=== PATIENT | female | born 1995 | race Caucasian/White ===

== ENCOUNTER 2017-09-23 01:29 | Emergency (ER) | payer BC ==
[2017-09-23] MEDS ORDERED: NS 0.9% 1000 ML* 1,000 ML IV ONE (01:59)
[2017-09-23] MEDS ORDERED: Ketorolac INJ* 30 MG/ML 1 ML VIAL IV PUSH ONE (02:00)
[2017-09-23] MEDS ORDERED: Metoclopramide IV* 5 MG/ML 2 ML VIAL IV SLOW PU ONE (02:01)
[2017-09-23 02:43] LABS: ABS Basophils 0.1 10^3/ul (0-0.2); ABS Eosinophils 0.1 10^3/ul (0-0.6); ABS Lymphocytes 3.2 10^3/ul (1.0-4.8); ABS Monocytes 0.6 10^3/ul (0-0.8); ABS Neutrophils 7.9 10^3/ul (1.5-7.7); ABS Nucleated RBC 0 10^3/ul; Eosinophil % 1.2 % (0-6); Hematocrit 38 % (35-47); Lymphocyte % 27.2 % (25-47); Mean Corpuscular HGB Conc 34 g/dl (31-36); Mean Corpuscular Hemoglobin 27 pg (27-31); Mean Corpuscular Volume 80 fL (80-97); Mean Platelet Volume 8 um3 (7.4-10.4); Nucleated Red Blood Cells % 0.1; Platelet Count 317 10^3/ul (150-450); Red Blood Count 4.77 10^6/ul (4.0-5.4); Red Cell Distribution Width 13 % (10.5-15); White Blood Count 11.9 10^3/ul (3.5-10.8)
[2017-09-23 03:05] LABS: Urine Appearance Clear; Urine Blood Negative (Negative); Urine Color Straw; Urine Ketones Negative (Negative); Urine Protein Negative (Negative); Urine Specific Gravity 1.004 (1.010-1.030); Urine Urobilinogen Negative (Negative)
--- NOTE | 2017-09-23 04:28 | ED ---
Connie Joya Edward, scribed for Dipesh Kathleen MD on 09/23/17 at 0145 . Syncope/Near Syncope - HPI Summary HPI Summary: 21 y/o female presents to the ED c/o intermittent syncopal episodes tonight. Pt had her first episode going to the bathroom. The episodes last from 5 and 33 seconds. Pt also c/o headache at the L side of her head. Associated sx: shakiness, back pain. Pt states she started having syncopal episodes on . PMHx depression and anxiety. Pt states every time she is about to pass out she feels like she need to urinate, but has never urinated. Pt was seen at [address] for these sx s/p 09/19/17. - History Of Current Complaint Hx Obtained From: Patient Timing: Intermittent Episode Lasting Context: Loss Of Consciousness Activity At Onset: Other - going to the bathroom Aggravating Factor(s): Nothing Alleviating Factor(s): Nothing Associated Signs And Symptoms: Headache, Other - back pain, shakiness - Allergies/Home Medications Allergies/Adverse Reactions: Allergies Allergy/AdvReac Type Severity Reaction Status Date / Time bupropion [From Wellbutrin] Allergy Hives Verified 09/23/17 01:39 duloxetine [From Cymbalta] Allergy Hives Verified 09/23/17 01:39 PMH/Surg Hx/FS Hx/Imm Hx Previously Healthy: No Cardiovascular History: Denies: Hx Congestive Heart Failure Opthamlomology History: Denies: Hx Legally Blind Psychiatric History: Reports: Hx Anxiety, Hx Depression - Family History Known Family History: Positive: Unknown - Social History Lives: With Family Smoking Status (MU): Unknown if Ever Smoked Review of Systems Constitutional: Negative Eyes: Negative ENT: Negative Cardiovascular: Negative Respiratory: Negative Gastrointestinal: Negative Genitourinary: Negative Positive: Myalgia - back pain Skin: Negative Neurological: Other - shakiness Positive: Headache, Syncope Psychological: Normal All Other Systems Reviewed And Are Negative: Yes Physical Exam - Summary Physical Exam Summary: VITAL SIGNS: Reviewed. GENERAL: Patient is a well-developed and nourished female who is lying comfortable in the stretcher. Patient is not in any acute respiratory distress. HEAD AND FACE: No signs of trauma. No ecchymosis, hematomas or skull depressions. No sinus tenderness. EYES: PERRLA, EOMI x 2, No injected conjunctiva, no nystagmus. EARS: Hearing grossly intact. Ear canals and tympanic membranes are within normal limits. MOUTH: Oropharynx within normal limits. NECK: Supple, trachea is midline, no adenopathy, no JVD, no carotid bruit, no c- spine tenderness, neck with full ROM. CHEST: Symmetric, no tenderness at palpation LUNGS: Clear to auscultation bilaterally. No wheezing or crackles. CVS: Regular rate and rhythm, S1 and S2 present, no murmurs or gallops appreciated. ABDOMEN: Soft, non-tender. No signs of distention. No rebound no guarding, and no masses palpated. Bowel sounds are normal. EXTREMITIES: FROM in all major joints, no edema, no cyanosis or clubbing. NEURO: Alert and oriented x 3. No acute neurological deficits. Speech is normal and follows commands. SKIN: Dry and warm Triage Information Reviewed: Yes Vital Signs Reviewed: Yes Diagnostics - Laboratory Result Diagrams: 09/23/17 02:25 09/23/17 02:25 Lab Statement: Any lab studies that have been ordered have been reviewed, and results considered in the medical decision making process. - EKG 1 EKG Interpretation: 01:35 - SR @ 88 BPM. Normal axis, normal interval, no ischemic changes. Course/Dx Assessment/Plan: EKG normal. Pt ambulated in the ED without dizziness. CT scan done at [place] was normal. Pt will be d/c home with f/u with PCP. - Diagnoses Provider Diagnoses: Dizziness, Syncope Discharge - Discharge Plan Condition: Stable Disposition: HOME Patient Education Materials: Syncope (ED), Dizziness (ED) Referrals: Non Staff,Doctor [Primary Care Provider] - 4 Days (PLEASE F/U IN 3-5 DAYS) Additional Instructions: RETURN TO THE ED FOR THE RETURN OR WORSENING OF SYMPTOMS The documentation as recorded by the Connie riley Edward accurately reflects the service I personally performed and the decisions made by , Dipesh Kathleen MD.
[2017-09-23 04:31] VITALS: BP 114/63
== END 2017-09-23 04:30 | disposition home or self-care (01) ==
LOC: ED 01:29
DX: R51 Headache (principal); M54.9 Dorsalgia, unspecified; R42 Dizziness and giddiness; R55 Syncope and collapse
CPT/HCPCS: 36415; 80053; 81003; 82550; 83605; 83735; 84443; 84702; 85025; 93005; 96374; 96375; 99283; J1885; J2765

== ENCOUNTER 2018-06-14 18:05 | Emergency (ER) | payer BC ==
[2018-06-14 18:36] VITALS: BP 118/73
--- NOTE | 2018-06-14 18:43 | UC ---
General HPI - HPI Summary HPI Summary: pt. states she went into [facility] on 06/10/18 and fainted when she went to pay. they wanted to call EMS but pt refused. she presents today for ongoing pain to R side of head and neck pain. she thinks she hit that side of her head when she fell. pt. states that she faints often and has been to a few different ER's but "nobody tells me any thing". she admits to feeling hot, dizzy and has a sense of needing to urinate before the fainting occurs. her LOC is brief, about 15 - 30 seconds. she does feel a little confused after each episode but that is brief. she has never lost control of her bowel/bladder. pt does not have a PCP. no numb/weak extremities, visual change, change in speech. no abrupt or worst headache. - History of Current Complaint Chief Complaint: UCHeadanatacha Stated Complaint: S/P FALL (3 DAYS AGO) HEADACHE Time Seen by Provider: 06/14/18 18:36 Hx Last Menstrual Period: 05/29/18 Pain Intensity: 9 Associated Signs & Symptoms: Positive: Headache, Syncope, Weakness. Negative: Chest Pain, SOB - Allergy/Home Medications Allergies/Adverse Reactions: Allergies Allergy/AdvReac Type Severity Reaction Status Date / Time bupropion [From Wellbutrin] Allergy Hives Verified 06/14/18 18:36 duloxetine [From Cymbalta] Allergy Hives Verified 06/14/18 18:36 Home Medications: Home Medications Ibuprofen 600 mg PO TID 06/14/18 [History Confirmed 06/14/18] PMH/Surg Hx/FS Hx/Imm Hx - Additional Past Medical History Additional PMH: fainting spells Psychological History: Anxiety, Depression, Post Traumatic Stress Disorder, Other - ADHD - Surgical History Surgical History: Yes Surgery Procedure, Year, and Place: appy, gallbladder removed - Family History Known Family History: Positive: Seizure Disorder - sister - Social History Occupation: Employed Full-time Alcohol Use: Occasionally Substance Use Type: None Smoking Status (MU): Never Smoked Tobacco Review of Systems All Other Systems Reviewed And Are Negative: Yes Constitutional: Positive: Negative Skin: Positive: Negative Eyes: Positive: Negative ENT: Positive: Negative Respiratory: Positive: Negative Cardiovascular: Negative: Palpitations, Chest Pain Gastrointestinal: Positive: Negative Genitourinary: Positive: Negative Motor: Positive: Negative Neurovascular: Positive: Negative Musculoskeletal: Positive: Other: - neck pain Neurological: Positive: Headache Psychological: Positive: Negative Is Patient Immunocompromised?: No Physical Exam Triage Information Reviewed: Yes Appearance: Well-Appearing Vital Signs: Initial Vital Signs Temp 99 F 06/14/18 18:31 Pulse 112 06/14/18 18:31 Resp 16 06/14/18 18:31 BP 118/73 06/14/18 18:31 Pulse Ox 100 06/14/18 18:31 Vital Signs Reviewed: Yes Eyes: Positive: Conjunctiva Clear, Other: - PERRL, EOMI. ENT: Positive: Pharynx normal, TMs normal. Negative: Nasal congestion, Nasal drainage Neck: Positive: Supple, No Lymphadenopathy, Other: - Diffuse posterior neck pain but no step off or instability. Respiratory: Positive: Lungs clear, Normal breath sounds Cardiovascular: Positive: RRR, No Murmur Abdomen Description: Positive: Nontender, No Organomegaly, Soft Bowel Sounds: Positive: Present Musculoskeletal: Positive: Other: - Head is normocephalic and tender on R side but no step off or instability. Thoracic and lumbar spine are non tender. extremities are atraumatic. Neurological: Positive: Alert, Other: - A&O x3. CN 2-12 grossly intact. 5/5 strength, 2+ reflexes and sensation intact x4. steady gait. Psychological: Positive: Age Appropriate Behavior Skin Exam: Normal Diagnostics - Radiology No standard instances Radiology Interpretation Completed By: Radiologist - CT BRAIN=IMPRESSION: No acute intracranial abnormality. CT CSPINE=IMPRESSION: 1. No acute cervical spine fracture. 2. Approximately 3 cm heterogeneous nodule in the left lobe of the thyroid gland. Recommend further evaluation with thyroid ultrasound. Recommend further evaluation with thyroid ultrasound. - EKG Cardiac Rate: NL Cardiac Rhythm: Sinus: Normal Ectopy: None ST Segment: Normal Re-Evaluation - Re-Evaluation First Eval Re-Evaluation Time: 19:50 Change: Unchanged - Thyroid exam=fullness L inferior lobe Course/Dx - Course Course Of Treatment: no lethal arrythmia on ekg. no concern for PE. vasal vagal syncope and orthostatic hypotension are possible. doubt seizure disoder but is in the differential. CT BRAIN=NAD AND C SPINE=NO FX, INCIDENTAL 3CM L THYROID NODULE. pt advised that she must f/u with a pcp for ongoing evaluation and tx of her fainting and throid nodule. she agrees. - Differential Dx - Multi-Symptom Provider Diagnoses: Contusion head, Neck strain, syncope, 3cm L thyroid nodule. Discharge - Sign-Out/Discharge Documenting (check all that apply): Patient Departure All imaging exams completed and their final reports reviewed: Yes - Discharge Plan Condition: Stable Disposition: HOME Patient Education Materials: Head Injury (ED), Cervical Strain (DC), Syncope ( DC), Thyroid Nodules (ED) Forms: *Work Release Referrals: GUI Ibarra [Medical Doctor] - [facility] [Outside] - As Soon As Possible Additional Instructions: SATURDAY AM(2 DAYS) CALL THE [facility]. THEY CAN ASSIST YOU WITH THE FOLLOW UP APPOINTMENT WITH [facility]. GO TO THE ER FOR ANY TYPE OF WORSENING OR RECURRENT FAINTING. - Billing Disposition and Condition Condition: STABLE Disposition: Home
[2018-06-14] MEDS ORDERED: Ibuprofen ADULT LIQ* 600 MG/30 ML UDC PO ONE (19:50)
== END 2018-06-14 19:58 | disposition home or self-care (01) ==
LOC: UCCORT 18:05
DX: Z88.8 Allergy status to other drugs, medicaments and biological substances (principal); S00.93XA Contusion of unspecified part of head, initial encounter; W19.XXXA Unspecified fall, initial encounter; Y92.511 Restaurant or cafe as the place of occurrence of the external cause; S16.1XXA Strain of muscle, fascia and tendon at neck level, initial encounter; R55 Syncope and collapse; E04.1 Nontoxic single thyroid nodule
CPT/HCPCS: 70450; 72125; 93005; 99212; A9270-GY; G0463

== ENCOUNTER 2019-05-30 10:52 | Emergency (ER) | payer BC, OTHER ==
[2019-05-30] MEDS ORDERED: HYDROcodone/ACETAMIN 5-325 MG* 1 TAB PO ONE (11:13)
[2019-05-30] MEDS ORDERED: Naproxen TAB* 250 MG PO ONE (11:13)
[2019-05-30] MEDS ORDERED: Lidocaine 1% MPF ** 5 ML VIAL INJ ONE (12:26)
--- NOTE | 2019-05-30 13:16 | UC ---
Bite Injury/Animal HPI - HPI Summary HPI Summary: 23 year old female presents to [facility] care [place] dog bite to both hands. She states that just prior to arrival she attempted to separate 2 of her own dogs who were fighting with one another and one of the dogs turned and bit her multiple times on her hands. Bleeding was controlled prior to arrival with direct pressure. States she has full movement to her fingers however very painful. Last tetanus 2018. - History of Current Complaint Chief Complaint: UCBiteInjury Stated Complaint: LEFT HAND DOG BITES Time Seen by Provider: 05/30/19 11:57 Hx Obtained From: Patient Hx Last Menstrual Period: 05/26/19 Pain Intensity: 9 - Allergies/Home Medications Allergies/Adverse Reactions: Allergies Allergy/AdvReac Type Severity Reaction Status Date / Time bupropion [From Wellbutrin] Allergy Hives Verified 05/30/19 11:13 duloxetine [From Cymbalta] Allergy Hives Verified 05/30/19 11:13 Home Medications: Home Medications Amphetamine MIXED SALT TAB* [Adderall TAB*] 10 mg PO DAILY PRN 05/30/19 [ History Confirmed 05/30/19] Depression Med, ? 1 tab PO BEDTIME 05/30/19 [History] Metoprolol Tartrate TAB* [Lopressor TAB*] 25 mg PO DAILY 05/30/19 [History Confirmed 05/30/19] PMH/Surg Hx/FS Hx/Imm Hx Cardiovascular History: Hypertension - Surgical History Surgical History: Yes Surgery Procedure, Year, and Place: appy, gallbladder removed - Family History Known Family History: Positive: Unknown, Seizure Disorder - sister - Social History Occupation: Employed Full-time Lives: With Family Alcohol Use: Rare Substance Use Type: None Smoking Status (MU): Never Smoked Tobacco - Immunization History Most Recent Tetanus Shot: 2018 Review of Systems All Other Systems Reviewed And Are Negative: Yes Constitutional: Positive: Negative Skin: Positive: Other - See HPI Respiratory: Positive: Negative Cardiovascular: Positive: Negative Gastrointestinal: Positive: Negative Genitourinary: Positive: Negative Motor: Negative: Weakness Neurovascular: Negative: Decreased Sensation Musculoskeletal: Negative: Decreased ROM Neurological: Positive: Negative Is Patient Immunocompromised?: No Physical Exam - Summary Physical Exam Summary: GENERAL APPEARANCE: Well developed, well nourished, alert and cooperative young adult female who appears to be in pain but no acute distress. CARDIAC: Normal S1 and S2. No S3, S4 or murmurs. Rhythm is regular. There is no peripheral edema, cyanosis or pallor. Extremities are warm and well perfused. Capillary refill is less than 2 seconds. Peripheral pulses intact. LUNGS: Clear to auscultation without rales, rhonchi, wheezing or diminished breath sounds. ABDOMEN: Positive bowel sounds. Soft, nondistended, nontender. No guarding or rebound. No masses or hepatosplenomegally. MUSKULOSKELETAL: ROM intact to all fingers. Normal muscular development. Normal gait. EXTREMITIES: Multiple superficial small lacerations and puncture wounds to bilateral hands and fingers (see diagram). There was a deep linear laceration to the dorsal, distal left middle finger (#7) with a corresponding deep laceration (#8) to the palmar aspect of the finger with adipose tissue protruding from the wound. Bleeding controlled. She has full ROM to all fingers. Circulation and sensation intact. SKIN: Skin normal color, texture and turgor with no lesions or eruptions. Triage Information Reviewed: Yes Vital Signs: Initial Vital Signs Temp 98.2 F 05/30/19 11:17 Pulse 81 05/30/19 11:17 Resp 18 05/30/19 11:17 BP 119/65 05/30/19 11:17 Pulse Ox 100 05/30/19 11:17 Vital Signs Reviewed: Yes Images Hands: 1 - Puncture wound 2 - Puncture wound 3 - Superficial linear laceration 4 - Superficial linear lacearation 5 - Superficial linear laceration 6 - Superficial puncture wound 7 - Deep linear laceration 8 - Deep linear laceration with protruding adipose tissue 9 - Superficial puncture wound 10 - Superficial linear laceration Procedures - Procedure Summary Procedure Summary: Procedure note: Laceration repair left middle finger Informed consent was obtained before procedure started and the appropriate timeout was taken. X-ray results were reviewed prior to the start of the procedure. The multiple superficial wounds to her bilateral hands and fingers were thoroughly cleansed using a sterile saline and chlorhexadine solution. After further examination it was determined that none of these required repair. A digital block of the left middle finger was performed using 4 ml of lidocaine 1% without epinephrine and good anesthesia was achieved. The area was prepped and draped in the usual sterile fashion. The wounds to the dorsal and palmar aspect of the distal left middle finger were copiously irrigated with a pressure device using 500 ml of sterile saline. I first turned my attention to the wound on the dorsal aspect of the finger. The wound margins were brought into good alignment and 6 interrupted sutures were placed using 5-0 Ethilon. I then turned my attention to the wound on the estrada aspect of the finger. I sharply excised some of the adipose tissue to allow for the wound margins to be brought into good alignment. The wound was then closed with a total of 3 interrupted sutures using 5-0 Ethilon. Total length of both wounds after repair was 2.5 cm. Estimated blood loss was minimal. A dressing was applied to the area. Anticipatory guidance, as well as standard post-procedure care was discussed with patient. Return precautions are given. The patient tolerated the procedure well without complications. Patient is to follow up with hand surgery in 2-3 days for revaluation of the laceration and likely scheduled for suture removal in 05-11 pending no complications. Diagnostics - Radiology No standard instances Radiology Interpretation Completed By: Radiologist Summary of Radiographic Findings: Order Information: HANDS BILATERAL. Indication: Dog bite LEFT distal third phalanx level and RIGHT fourth -- fifth fingers with puncture wound. Comparison: No relevant prior exams available on the [facility] for comparison. Technique: AP, lateral, and oblique views bilateral hands. REPORT AND IMPRESSION: RIGHT hand: #. Fusiform soft tissue swelling most prominent at the fourth and fifth fingers. #. Suggestion of an impaction fracture involving the dorsal cortex at the diaphysis of the fifth distal phalanx; correlate for overlying puncture wound. No retained foreign body evident. #. Subcutaneous emphysema noted at the first interspace between the first and second metacarpals without conspicuous retained foreign body. #. Normal articular alignment. LEFT hand: #. Soft tissue swelling most prominent at the radial volar aspect of the third finger at the level of the DIP joint. # . Small grossly nondisplaced avulsion fracture from the radial base of the third distal phalanx corresponding with the insertion site of the radial collateral ligament at the PIP. #. No conspicuous retained foreign bodies evident. #. Normal articular alignment. Bite Injury Course/Dx - Course Course Of Treatment: 23 year old female presents to urgent care [place] dog bite to both hands. She states that just prior to arrival she attempted to separate 2 of her own dogs who were fighting with one another and one of the dogs turned and bit her multiple times on her hands. Bleeding was controlled prior to arrival with direct pressure. States she has full movement to her fingers however very painful. Last tetanus 2017. Afebrile. Vital signs stable. Patient had multiple superficial small lacerations and puncture wounds to bilateral hands and fingers (see diagram). There was a deep linear laceration to the dorsal, distal left middle finger (#7) with a corresponding deep laceration (#8) to the palmar aspect of the finger with adipose tissue protruding from the wound. Bleeding controlled. She has full ROM to all fingers. Circulation and sensation intact. Patient was medicated for pain with naproxen 500 mg 1 tab PO and hyrdocodone- acetaminophen 5 mg/325 mg 1 tab PO. X-rays of the bilateral hands were obtained prior to would repair which showed fusiform soft tissue swelling most prominent at the fourth and fifth fingers of the right hand, an impaction fracture involving the dorsal cortex at the diaphysis of the fifth distal phalanx without evidence of foreign body, as well as subcutaneous emphysema noted at the first interspace between the first and second metacarpals without conspicuous retained foreign body. There was soft tissue swelling most prominent at the radial volar aspect of the third finger at the level of the DIP joint of the left hand, a small grossly nondisplaced avulsion fracture from the radial base of the third distal phalanx corresponding with the insertion site of the radial collateral ligament at the PIP, and no conspicuous retained foreign bodies evident. Results were reviewed with the patient. After obtaining informed consent and performing an appropriate time out, the multiple superficial wounds were thoroughly cleansed and examined and determined to not need repair. A digital block of the left middle finger was then performed so that the deep lacerations of the dorsal and palmar aspects of distal finger could be copiously irrigated and repaired. The wounds were dressed by the RN and patient's left middle finger was placed in a splint by the RN. She was provided a prescription for Augmentin 875 mg BID x 5 days for infection prophylaxis as well as a short-term prescription for hydrocodone-acetaminophen 5mg/325 mg 1 tab every 6 hours as needed for severe pain. She is to follow up with hand surgery in 2-3 days for further evaluation and treatment. Sutures should be removed in -14 pending no complications. Wound care, anticipatory guidance, and warning symptoms were reviewed with the patient. Patient verbalizes understanding and agrees with plan of care. - Differential Dx/Diagnosis Differential Diagnosis/HQI/PQRI: Fracture, Laceration, Puncture, Other Provider Diagnosis: Dog bite of left hand, Dog bite of right hand, Fracture of distal phalanx of finger of right hand, Fracture of distal phalanx of left index finger Discharge ED - Sign-Out/Discharge Documenting (check all that apply): Patient Departure All imaging exams completed and their final reports reviewed: Yes - Discharge Plan Condition: Stable Disposition: HOME Prescriptions: Amoxicillin/Clavulanate TAB* [Augmentin TAB 875*] 875 mg PO BID 5 Days #10 tab Hydrocodone/Acetaminophen [Hydrocodone/Acetaminophen 5-325 mg] 1 tab PO Q6HR PRN #12 tab MDD 4 PRN Reason: Pain - Severe Patient Education Materials: Animal Bite (ED), Care For Your Stitches (ED), Finger Fracture (ED) Forms: *Work Release Referrals: Nicky Noyola [Primary Care Provider] - Gaurav Soto MD [Medical Doctor] - 2 Days (Call first thing Saturday morning for an appointment.) Additional Instructions: The x-ray performed in the clinic today showed a possible impaction fracture involving the dorsal cortex at the diaphysis of the fifth distal phalanx and a nondisplaced avulsion fracture from the radial base of the third distal phalanx. Rest your hand/finger(s) as much as possible. Wear the splint that was applied to the left middle finger. You may remove to shower but should wear at all other times. Apply ice to the affected area(s) for 15-20 minutes at least 4 times a day to help with the pain and swelling. Elevate the hand(s) to help reduce swelling. Take and anti-inflammatory pain medication such ibuprofen (Advil, Motrin) according to directions as needed for pain. You are given a similar medication called Naproxen at 11:40 am in the clinic so you should not take any more anti- inflammatory medications for 12 hours after receiving the naproxen. Take hydrocodone-acetaminophen 5 mg/325 mg 1 tablet every 6 hours as needed for severe pain. You were given a dose at 11:40 am in the clinic. This medication will cause drowsiness therefore you should not drive or operate machinery while taking. We will start you on an antibiotic to prevent any infection of the wounds. Start Augmentin 875 mg twice daily for 5 days. Take with food to avoid upset stomach. Be sure to take the entire course. Leave the dressing that was applied in the clinic in place for the next 24 hours. Be sure to keep it clean and dry. After 24 hours, you may remove the dressing and shower and wash hands as normal. Do not submerge your hand(s) under water to prevent infection. Clean the wound(s) with a mild soap and water at least once a day. Apply some antibiotic ointment and cover with a bandage. The bandage(s) should be changed at least once a day or any time the dressing becomes wet or soiled. Sutures will need to be removed in 10-14 days or when determined by hand surgery. Follow up with hand surgery in 2-3 days. Call first thing Saturday morning for an appointment. Watch for signs of infection including fever greater than 100.5 F, severe pain not managed with pain medication, redness that spreads, swelling of the hand/ fingers, or pus draining from the wound. Seek immediate medical attention in the emergency room should any of these occur. - Billing Disposition and Condition Condition: STABLE Disposition: Home
[2019-05-30 13:25] VITALS: BP 104/58
== END 2019-05-30 13:53 | disposition home or self-care (01) ==
LOC: UCCORT 10:52
DX: S61.452A Open bite of left hand, initial encounter (principal); S61.451A Open bite of right hand, initial encounter; S62.636A Displaced fracture of distal phalanx of right little finger, initial encounter for closed fracture; S62.631A Displaced fracture of distal phalanx of left index finger, initial encounter for closed fracture; S61.216A Laceration without foreign body of right little finger without damage to nail, initial encounter; S61.214A Laceration without foreign body of right ring finger without damage to nail, initial encounter; S61.213A Laceration without foreign body of left middle finger without damage to nail, initial encounter; S61.236A Puncture wound without foreign body of right little finger without damage to nail, initial encounter; S61.233A Puncture wound without foreign body of left middle finger without damage to nail, initial encounter; S61.235A Puncture wound without foreign body of left ring finger without damage to nail, initial encounter; I10 Essential (primary) hypertension; Z88.8 Allergy status to other drugs, medicaments and biological substances; W54.0XXA Bitten by dog, initial encounter; Y92.9 Unspecified place or not applicable
CPT/HCPCS: 12041; 99213; A9270-GY; G0463